=== PATIENT | male | born 1960 | race Caucasian/White ===

== ENCOUNTER 2018-04-01 14:16 | Observation (INO) | payer MEDICAID ==
[~2018-04-01] VITALS: Ht 198.1 cm; Wt 102.9 kg
[~2018-04-01 14:16] MED LIST: QUET300T PO; QUET50TA5 PO; SERT50TA PO
[2018-04-01 15:05] LABS: BASOPHILS # (AUTO) 0.04 x10^3/uL (0-0.1); BASOPHILS % (AUTO) 1 % (0-1); EOSINOPHILS # (AUTO) 0.19 x10^3/uL (0-0.4); EOSINOPHILS % (AUTO) 3 % (1-7); LYMPHOCYTES # (AUTO) 1.64 x10^3/uL (1-3.4); LYMPHOCYTES % (AUTO) 24 % (22-44); MD NO; MEAN CORPUSCULAR HEMOGLOBIN 30.3 pg (27.5-34.5); MEAN PLATELET VOLUME 8.8 fL (7.4-10.4); MONOCYTES # (AUTO) 0.97 x10^3/uL (0.2-0.8); MONOCYTES % (AUTO) 14 % (2-9); NEUTROPHILS # (AUTO) 4.01 x10^3/uL (1.8-6.8); NEUTROPHILS % (AUTO) 59 % (42-75); PLATELET COUNT 216 x10^3/uL (130-400); RED BLOOD COUNT 4.53 x10^6/uL (4.38-5.82); RED CELL DISTRIBUTION WIDTH 13.9 % (9.4-14.8)
[2018-04-01] MEDS ORDERED: QUET200T PO (15:07)
[2018-04-01 15:13] LABS: ALBUMIN 3.2 g/dL (3.4-5.0); ANION GAP 7 mmol/L (5-15); CALCIUM 8.5 mg/dL (8.5-10.1); CHLORIDE 111 mmol/L (98-107)
[2018-04-01 15:17] LABS: CREATININE 0.93 mg/dL (0.7-1.3); SALICYLATE LEVEL 1.8 mg/dL (2.8-20.0)
[2018-04-01 15:26] LABS: ACETAMINOPHEN < 2 mcg/mL (10-30)
[2018-04-01 15:40] LABS: AMPHETAMINE SCREEN, URINE Positive (Negative); BARBITURATE SCREEN, URINE Negative (Negative); BENZODIAZEPINE SCREEN, URINE Negative (Negative); CANNABINOID SCREEN, URINE Positive (Negative); COCAINE SCREEN, URINE Negative (Negative); METHADONE SCREEN, URINE Negative (Negative); OPIATE SCREEN, URINE Negative (Negative)
[2018-04-01] MEDS ORDERED: LORazepam 1MG TABLET PO PRN (17:30)
[2018-04-01 22:02] VITALS: BP 128/77
[2018-04-01] MEDS: QUETIAPINE 200 MG TABLET PO SCH (22:38)
[2018-04-02 08:07] VITALS: BP 124/87
[2018-04-02] MEDS: THIAMINE 100MG TABLET PO SCH (09:07)
[2018-04-02] MEDS: FOLIC ACID 1 MG TABLET PO SCH (09:07)
[2018-04-02 20:00] VITALS: BP 144/98
[2018-04-02] MEDS: QUETIAPINE 200 MG TABLET PO SCH (21:38)
[2018-04-03] MEDS: FOLIC ACID 1 MG TABLET PO SCH (08:27)
[2018-04-03] MEDS: THIAMINE 100MG TABLET PO SCH (08:27)
[2018-04-03 08:32] VITALS: BP 132/90
[2018-04-03] MEDS: ACETAMINOPHEN 325 MG TABLET PO PRN ×2 (14:05→17:37)
[2018-04-03 19:51] VITALS: BP 127/91
[2018-04-03] MEDS: QUETIAPINE 200 MG TABLET PO SCH (20:06)
[2018-04-04 08:10] VITALS: BP 116/85
[2018-04-04] MEDS: THIAMINE 100MG TABLET PO SCH (09:36)
[2018-04-04] MEDS: FOLIC ACID 1 MG TABLET PO SCH (09:36)
== END 2018-04-04 11:30 ==
LOC: ED 16:24 → EDIP 16:25 → ED 16:45 → 3E 22:00
PROVIDERS: ADMIT Hospitalist; ATTEND Hospitalist
DX: R45.851 Suicidal ideations (principal); F10.10 Alcohol abuse, uncomplicated; F12.10 Cannabis abuse, uncomplicated; F15.10 Other stimulant abuse, uncomplicated; F17.200 Nicotine dependence, unspecified, uncomplicated; F31.9 Bipolar disorder, unspecified; F33.2 Major depressive disorder, recurrent severe without psychotic features; F60.9 Personality disorder, unspecified; Z91.5 Personal history of self-harm
CPT/HCPCS: 36415; 80048; 80307; 80329; 82040; 85025; 99285; G0378; G0480

== ENCOUNTER 2018-04-24 16:32 | Emergency (ER) | payer MEDICAID ==
[~2018-04-24] VITALS: Ht 182.9 cm; Wt 77.2 kg
[~2018-04-24 16:32] MED LIST changes: +QUET200T PO
[2018-04-24 18:04] LABS: AMPHETAMINE SCREEN, URINE Positive (Negative); BARBITURATE SCREEN, URINE Negative (Negative); BENZODIAZEPINE SCREEN, URINE Negative (Negative); CANNABINOID SCREEN, URINE Positive (Negative); COCAINE SCREEN, URINE Negative (Negative); METHADONE SCREEN, URINE Negative (Negative); OPIATE SCREEN, URINE Negative (Negative)
[2018-04-24 18:22] LABS: BASOPHILS # (AUTO) 0.05 x10^3/uL (0-0.1); BASOPHILS % (AUTO) 1 % (0-1); EOSINOPHILS # (AUTO) 0.06 x10^3/uL (0-0.4); EOSINOPHILS % (AUTO) 1 % (1-7); LYMPHOCYTES # (AUTO) 1.74 x10^3/uL (1-3.4); LYMPHOCYTES % (AUTO) 19 % (22-44); MD NO; MEAN CORPUSCULAR HEMOGLOBIN 30.7 pg (27.5-34.5); MEAN CORPUSCULAR HGB CONC 33.1 g/dL (33.2-36.2); MEAN CORPUSCULAR VOLUME 92.8 fL (81-97); MEAN PLATELET VOLUME 8.8 fL (7.4-10.4); MONOCYTES # (AUTO) 0.88 x10^3/uL (0.2-0.8); MONOCYTES % (AUTO) 10 % (2-9); NEUTROPHILS # (AUTO) 6.57 x10^3/uL (1.8-6.8); NEUTROPHILS % (AUTO) 71 % (42-75); PLATELET COUNT 238 x10^3/uL (130-400); RED BLOOD COUNT 4.65 x10^6/uL (4.38-5.82); RED CELL DISTRIBUTION WIDTH 14.4 % (9.4-14.8)
[2018-04-24 18:23] LABS: ALBUMIN 3.7 g/dL (3.4-5.0); ANION GAP 8 mmol/L (5-15); CALCIUM 8.3 mg/dL (8.5-10.1); CHLORIDE 112 mmol/L (98-107); SALICYLATE LEVEL 2.7 mg/dL (2.8-20.0)
[2018-04-24 18:26] LABS: ALANINE AMINOTRANSFERASE 69 U/L (12-78); ALKALINE PHOSPHATASE 72 U/L (45-117); BILIRUBIN,TOTAL 0.4 mg/dL (0.2-1.0); TOTAL PROTEIN 7.1 g/dL (6.4-8.2)
[2018-04-24 18:27] LABS: ACETAMINOPHEN < 2 mcg/mL (10-30)
[2018-04-24 22:17] VITALS: BP 139/85
== END 2018-04-24 22:41 | disposition home or self-care (01) ==
LOC: ED 17:58
DX: F10.10 Alcohol abuse, uncomplicated (principal); R45.851 Suicidal ideations; F32.9 Major depressive disorder, single episode, unspecified; Z79.899 Other long term (current) drug therapy
CPT/HCPCS: 36415; 80053; 80307; 80329; 85025; 99284; G0480